=== PATIENT | female | born 1940 ===

== ENCOUNTER 2018-04-29 11:43 | Emergency (ER) | payer BC ==
[2018-04-29] MEDS ORDERED: Bupivacaine 0.25% SDV* 30 ML INJ ONE (12:02)
[2018-04-29] MEDS ORDERED: Triamcinolone Acetonide* 40 MG/ML 1 ML VIAL INTRAARTIC ONE (12:02)
[2018-04-29 12:05] VITALS: BP 149/85
[2018-04-29] MEDS ORDERED: Bupivacaine 0.25% SDV PF* 10 ML VIAL INJ ONE (12:08)
--- NOTE | 2018-04-29 12:16 | UC ---
Knee Pain HPI - HPI Summary HPI Summary: 77-year-old female presents with one-month history of increasing tenderness in the knee. She states that it began while she was on a trip to [place]. She may have exerted herself a little bit more than usual there. She denies any injury to the joint, any tick bites or any prior surgery. She has no known history for any arthritic conditions including gout, rheumatoid arthritis, Crohn's/ colitis or osteoarthritis. She has not been taking anything for the discomfort and as of yesterday has begun walking with crutches due to tenderness. Most of the tenderness is in the medial aspect of the joint. She reports no warmth, swelling of the joint. No other joints have been affected. - History of Current Complaint Chief Complaint: UCLowerExtremity Stated Complaint: LEFT KNEE PAIN Time Seen by Provider: 04/29/18 11:51 Hx Obtained From: Patient Pain Intensity: 0 - Allergies/Home Medications Allergies/Adverse Reactions: Allergies Allergy/AdvReac Type Severity Reaction Status Date / Time No Known Allergies Allergy Verified 04/29/18 12:00 Home Medications: Home Medications Aspirin EC TAB* [Ecotrin EC Low Dose 81 MG*] 81 mg PO DAILY 04/29/18 [History Confirmed 04/29/18] Hydrochlorothiazide TAB* [Hydrodiuril TAB*] 25 mg PO DAILY 04/29/18 [History Confirmed 04/29/18] Lovastatin (NF) [Mevacor (NF)] 10 mg PO 1700 04/29/18 [History Confirmed ] Melatonin (NF) 1 tab PO BEDTIME 04/29/18 [History Confirmed 04/29/18] PARoxetine HCL TAB* [Paxil TAB*] 20 mg PO DAILY 04/29/18 [History Confirmed ] Ramipril CAP* [Altace CAP*] 10 mg PO DAILY 04/29/18 [History Confirmed 04/29/18] amLODIPine TAB* [Norvasc 5 mg TAB*] 10 mg PO DAILY 04/29/18 [History Confirmed 04/29/18] PMH/Surg Hx/FS Hx/Imm Hx Cardiovascular History: Hypertension - Surgical History Surgical History: Yes Surgery Procedure, Year, and Place: hysterectomy, carpal tunnel, cataracts - Family History Known Family History: Positive: Hypertension - Social History Occupation: Retired Alcohol Use: None Substance Use Type: None Smoking Status (MU): Never Smoked Tobacco Review of Systems Constitutional: Negative Skin: Other - Denies rash, erythema Respiratory: Negative Cardiovascular: Negative Motor: Decreased ROM Neurovascular: Negative Musculoskeletal: Arthralgia, Decreased ROM Neurological: Negative All Other Systems Reviewed And Are Negative: Yes Physical Exam Triage Information Reviewed: Yes Appearance: Well-Appearing, No Pain Distress, Well-Nourished Vital Signs: Initial Vital Signs Temp 97.9 F 04/29/18 11:58 Pulse 86 04/29/18 11:58 Resp 18 04/29/18 11:58 BP 149/85 04/29/18 11:58 Pulse Ox 99 04/29/18 11:58 ENT: Positive: Normal ENT inspection Respiratory: Positive: Chest non-tender, Lungs clear, Normal breath sounds, No respiratory distress Cardiovascular: Positive: RRR, Brisk Capillary Refill Musculoskeletal: Positive: Strength Intact, ROM Intact, No Edema, Other: - Antalgic gait. No erythema, warmth or effusion to the left knee joint. Tender medially. Ligaments are stable. Neurological Exam: Normal Neurological: Positive: Muscle Tone Normal Skin Exam: Normal Procedures - Procedure Summary Procedure Summary: Left knee joint injection: Reason: One month of left knee pain Description: Patient with x-ray concerning for osteoarthritis with medial joint pain. The lateral aspect of the left knee was cleaned with Betadine and alcohol. Patient was placed supine with her knee supported by towels. She was injected laterally with a total of 1 cc of 0.25% bupivacaine and 40 mg of Kenalog. Her pain relief was good. She was placed in an Miguelito wrap. She tolerated this procedure well without complication. Diagnostics - Radiology x-ray left knee Xray Interpretation: Positive (See Comments) - No effusion. Mild medial compartment joint space narrowing consistent with osteoarthritis. Radiology Interpretation Completed By: Radiologist Knee Pain Course/Dx - Course Course Of Treatment: Patient with medial joint space narrowing on x-ray and 1 month of discomfort in her medial left knee. This is consistent with osteoarthritis. Injected with Kenalog, bupivacaine. Follow-up primary care physician. Prescribed Mobic. - Differential Dx/Diagnosis Differential Diagnosis/HQI/PQRI: Other - Lyme arthritis, septic arthritis, knee strain, osteoarthritis, inflammatory arthritis, gout Provider Diagnoses: 1. Left knee pain. 2. Left knee osteoarthritis Discharge - Sign-Out/Discharge Documenting (check all that apply): Patient Departure - Discharge Plan Condition: Improved Disposition: HOME Prescriptions: Meloxicam [Mobic] 7.5 mg PO DAILY #30 tablet Patient Education Materials: Osteoarthritis (ED), Arthralgia (ED) Referrals: Amrik Jensen [Primary Care Provider] - Additional Instructions: Your blood pressure was elevated today. Follow this up with your primary care physician. Follow-up your knee discomfort with primary care physician. They may seek to refer you to orthopedist or do further imaging. Return if worse, swelling, redness, fever, or other concerns as discussed. - Billing Disposition and Condition Condition: IMPROVED Disposition: Home
--- NOTE | 2018-04-29 12:28 | RAD ---
HISTORY: pain, left knee COMPARISONS: None VIEWS: 4, Frontal, lateral, axial, and oblique views of the left knee FINDINGS: BONE DENSITY: Normal. BONES: There is no displaced fracture. JOINTS: There is mild medial compartment joint space narrowing. There is no suprapatellar joint effusion or lipohemarthrosis. ALIGNMENT: There is no dislocation. SOFT TISSUES: Unremarkable. OTHER FINDINGS: None. IMPRESSION: NO ACUTE OSSEOUS INJURY. IF SYMPTOMS PERSIST, RECOMMEND REPEAT IMAGING.
== END 2018-04-29 13:02 | disposition home or self-care (01) ==
LOC: UCCORT 11:43
DX: M17.12 Unilateral primary osteoarthritis, left knee (principal); I10 Essential (primary) hypertension
CPT/HCPCS: 20610; 99212; G0463; J3301; J3490